=== PATIENT | male | born 1950 | race Caucasian/White ===

== ENCOUNTER 2022-09-21 19:50 | Emergency (ER) | payer MEDICARE, SELFPAY ==
[2022-09-21 19:51] VITALS: BP 201/99; PULSE 84; RESP 18; TEMP 36.4; O2SAT 95; BMI 34.7
--- NOTE | 2022-09-21 19:57 | ED_ITS ---
HPI - Alcohol General Chief Complaint: Alcohol Stated Complaint: ALCOHOL Time Seen by Provider: 09/21/22 19:53 Source: patient Mode of arrival: ambulance History of Present Illness HPI narrative: patient at home drinking alcohol. Fell onto the ground and was not able to get up. Neighbors called Ryan. Ryan describes him as trying to sit up and then falling back striking his head. He was next to the shed. No history of LOC of vomiting. His clothes are all wet from his rolling around on the ground trying to get up. He states he is wet because he was out in the sun all day. He states his is at home. Ryan states there is no at the house. He now presents intoxicated but no obvious injuries MD complaint: Reports alcohol intoxication Related Data Allergies Allergy/AdvReac Type Severity Reaction Status Date / Time No Known Drug Allergies Allergy Verified 09/21/22 19:56 Review of Systems 2 ROS Status of ROS unobtainable due to mental status (alcohol intox. patient awake and talking but confabulating) Exam Constitutional Vital Signs, click to edit/add: Last Vital Signs Temp 97.6 F 09/21/22 19:51 Pulse 84 09/21/22 19:51 Resp 18 09/21/22 19:51 BP 201/99 H 09/21/22 19:51 Pulse Ox 95 09/21/22 19:51 O2 Del Method Room Air 09/21/22 19:51 Common normals: no apparent distress (intoxicated but cooperative. ) and alert Other: answers nursing question about when is his birthday. He states first month and 53. When ask what day he was born, he states why does it matter and again gives month and year of HENDC Common normals: normocephalic and head/scalp atraumatic Eye Common normals: PERRL (eyes glassy) and EOMs intact bilaterally Chest Common normals: inspection of chest normal and palpation of chest normal Respiratory Common normals: normal respiratory effort, no retractions, no use of accessory muscles and clear to auscultation bilaterally Cardio Common normals: regular rate, regular rhythm, S1 normal heart sound and S2 normal heart sound GI Common normals: Normal to inspection, nondistended, normoactive bowel sounds present, soft to palpation and non-tender Extremity Common normals: normal to inspection and full ROM Neuro Common normals: moves all extremities, no focal motor deficits and no sensory deficits noted Psych Appearance: grossly normal and other (intoxicated) Course Vital Signs Vital signs: Vital Signs Temperature 97.6 F 09/21/22 19:51 Pulse Rate 84 09/21/22 19:51 Respiratory Rate 18 09/21/22 19:51 Blood Pressure 201/99 H 09/21/22 19:51 Pulse Oximetry 95 09/21/22 19:51 Oxygen Delivery Method Room Air 09/21/22 19:51 Temperature 97.6 F 09/21/22 19:51 Pulse Rate 84 09/21/22 19:51 Respiratory Rate 18 09/21/22 19:51 Blood Pressure 201/99 H 09/21/22 19:51 Pulse Oximetry 95 09/21/22 19:51 Oxygen Delivery Method Room Air 09/21/22 19:51 MDM - Alcohol MDM Narrative Medical decision making narrative: patient arrives intoxicated via squad from home. Neighbors called Squad because the patient was intoxicated and had fallen and could not get up. Patient reportedly tried to get up several times but was unsuccessful and kept falling back striking his head. Alcohol level >200. CT brain neg for acute findings. Patient did require Ativan to help him cooperate and stay on the stretcher. He finally did relax and was observed in the department. His son was called and stated he would come in later this AM to picker/puller his father Discharge Plan Discharge Chief Complaint: Alcohol Clinical Impression: Alcoholic intoxication Patient Disposition: Home, Self-Care Instructions: Alcohol Intoxication (ED) Additional Instructions: follow up with your doctor next week Stand Alone Forms: Portal Instructions Referrals: Physician,Non-Staff, MD [Primary Care Provider] - 1 week
[2022-09-21] MEDS: 0.9 % SODIUM CHLORIDE 1,000 ML 999 ML IV (20:22)
[2022-09-21] MEDS: LORAZEPAM 2 MG/ML 1 ML VIAL 1 MG IV ×2 (20:32→22:09)
[2022-09-21 20:33] LABS: Basophils Percent Auto 0.6 % (0.2-2.0); Eosinophils Absolute Auto 0.3 10^3/uL (0.0-0.7); Eosinophils Percent Auto 3.8 % (0.9-7.0); Hematocrit 48.8 % (42.0-54.0); Hemoglobin 16.8 g/dL (14.0-18.0); Immature Granulocytes Abs Auto 0.05 10^3/uL (0.00-0.03); Immature Granulocytes Pct Auto 0.8 % (0.0-0.5); Lymphocytes Absolute Auto 1.3 10^3/uL (1.2-3.8); Lymphocytes Percent Auto 20.1 % (20.5-60.0); Mean Corpuscular HGB Conc 34.4 g/dL (29.9-35.2); Mean Corpuscular Hemoglobin 34.1 pg (25.9-34.0); Mean Platelet Volume 10.9 fL (9.5-13.5); Monocytes Absolute Auto 0.6 10^3/uL (0.3-0.8); Monocytes Percent Auto 8.5 % (1.7-12.0); Neutrophils Absolute Auto 4.3 10^3/uL (1.4-6.5); Neutrophils Percent Auto 66.2 % (43.0-75.0); Platelet Count 178 10^3/uL (150-450); Red Blood Count 4.93 10^6/uL (4.70-6.10); Red Cell Distribution Width 13.2 % (11.0-15.0); White Blood Count 6.6 10^3/uL (4.0-11.0)
[2022-09-21 20:50] LABS: Alanine Aminotransferase 23 U/L (16-63); Albumin Globulin Ratio 0.9; Albumin Level 3.7 g/dL (3.4-5.0); Alkaline Phosphatase 81 U/L (46-116); Anion Gap 14.5; Aspartate Amino Transferase 15 U/L (15-37); BUN Creatinine Ratio 7.9; Bilirubin Total 0.6 mg/dL (0.2-1.0); Calcium 8.2 mg/dL (8.5-10.1); Carbon Dioxide 25.3 mmol/L (21.0-32.0); Chloride 98 mmol/L (98-107); Estimated GFR (African America >60 (>=60); Estimated GFR (Non-African Ame >60 (>=60); Globulin 3.9 g/dL; Glucose 86 mg/dL (74-106); Potassium 3.8 mmol/L (3.5-5.1); Sodium 134 mmol/L (136-145); Total Protein 7.6 g/dL (6.4-8.2)
[2022-09-21 20:52] LABS: Ethanol 231 mg/dL; Magnesium 1.9 mg/dL (1.8-2.4)
[2022-09-21] MEDS: HALOPERIDOL LACTATE 5 MG/ML VIAL IM (22:07)
[2022-09-21 22:47] VITALS: BP 145/76; PULSE 90; O2SAT 92
--- NOTE | 2022-09-21 22:49 | CT_ITS ---
The [address] [address] Patient Name: JESSICA JUNG MRN: [id number] date: 1950 Sex: M Assigned Patient Location: ER Current Patient Location: ER Accession/Order Number: [id number] Exam Date: 09/21/2022 23:05 Report Date: 09/21/2022 23:29 At the request of: CAROLINE DAVIS Procedure: CT head/brain wo con CT head/brain wo con, 09/21/2022 8:05 PM PDT INDICATION: head injury COMPARISON: None. TECHNIQUE: Axial CT images of the brain from skull base to vertex, including portions of the face and sinuses, were obtained without contrast. Multiplanar reformatted images were generated and reviewed as needed. Dose reduction techniques were achieved by using automated exposure control and/or adjustment of mA and/or kV according to patient size and/or use of iterative reconstruction technique. FINDINGS: CEREBRUM: Age-appropriate atrophy is present, without visible acute hemorrhage or lesion. Periventricular low density change is demonstrated, consistent with chronic small vessel disease. CEREBELLUM: No edema, hemorrhage, mass, acute infarction, or inappropriate atrophy. BRAINSTEM: No acute infarct, hemorrhage or gross structural abnormality. CSF SPACES: Ventricles, cisterns, and sulci are appropriate for age. No hydrocephalus, subarachnoid hemorrhage, or mass. SKULL: No mass or other significant visible lesion. SINUSES: Limited views demonstrate no significant mucosal thickening or fluid. ORBITS: Limited views are unremarkable. OTHER: None. CT/CT head/brain wo con IMPRESSION: Age-related deep white matter changes consistent with chronic small vessel disease superimposed on overall findings of age-appropriate cortical atrophy. No acute intracranial abnormality is otherwise identified. Electronically authenticated by: Kathleen CHRISTOPHER Date: 09/21/2022 23:29
[2022-09-22 04:11] VITALS: BP 170/80; PULSE 100; RESP 14; O2SAT 93
== END 2022-09-22 08:50 | disposition home or self-care (01) ==
PROVIDERS: Emergency Provider Internal Medicine
DX: F10.129 Alcohol abuse with intoxication, unspecified (principal); Y90.7 Blood alcohol level of 200-239 mg/100 ml
CPT/HCPCS: 36415; 70450; 80053; 80320; 83735; 85025; 96372; 96374; 96376; 99284

== ENCOUNTER 2023-03-30 17:16 | Emergency (ER) | payer MEDICARE, SELFPAY ==
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
--- NOTE | 2023-03-30 18:32 | PC.NURSE ---
patient brought in by ems, patient has hx of stroke this past December 2022, patient has been chair bound and hasn't been ambulating. patient lives at home with but patients was at sisters house today and also has hx of stroke. patients son (ramon servin) checked in on patient and found patient unresponsive and ems was called. when ems arrived there was no morbidity and cpr was initiated. patient was originally found in v-fib and shocked a total of 5 times, and then was in PEA. ems had given a total of 7 epi, 300mg and 150mg of amiodarone, 1g calcium, and 50 of bicarb. bs on arrival from ems was 241. last known well was around 1pm. patient has no primary care doctor and hasn't seen a doctor in years. 1716- arrival to ED, CPR being done per juanis machine; cpr held, pulse and rhythm check, no pulse found; idioventricular rhythm. 1717- CPR with juanis machine re-initiated 171- dr. soria checked ET placement; 1mg of EPI in. vital signs recorded during CPR- o2-80% 172- CPR stopped; pulse check- no pulse. dr. soria checked with ultrasound- no contractility of heart and no pulse. 172- dr. soria called time of at 1722. patient has no primary care physician patient is a coroners case; [facility] coroners office notified patients son at bedside, patients notified by son but unable to come see patient d/t history of stroke. 175- [facility] called at this time. reference number- [id number]. this rn notified by [facility] that the patient is good to go with the [facility] and that they will contact the rackman if they have any questions. [facility] is to follow up in 1 hour 1800- patient son had taken off, this rn called patients son ramon and son states that he will not be coming back in and is okay with patients being released to [facility]. patients son states that the patients will not be able to make it d/t hx of stroke. this rn attempted to call patients but no answer. 1829- [facility] coroners office signed release of body form and states that the ride won't be here for an hour and a half.
--- NOTE | 2023-03-30 19:45 | PC.NURSE ---
[facility] called at this time, notified [facility] that the patient is to be going with [facility] coroners office sometime after 8pm. [facility] let this rn know that they will contact the supervising floorperson with any further questions.
== END 2023-03-30 21:12 | disposition expired ==
PROVIDERS: Emergency Provider Emergency Medicine
DX: I46.9 Cardiac arrest, cause unspecified (principal)
CPT/HCPCS: 92950; 99285; J0171